=== PATIENT | female | born 1955 | race Caucasian/White ===

== ENCOUNTER 2017-11-12 11:58 | Inpatient (IN) | payer OTHER ==
[~2017-11-12] VITALS: Ht 162.6 cm; Wt 105.8 kg
[~2017-11-12 11:58] MED LIST: ASPI81CT95 PO; CARV3.12 PO; CLOP75TA PO; NITR0.4T94 SL; SIMV20TA1 PO
[2017-11-12 12:26] VITALS: BP 126/74
[2017-11-12 13:10] LABS: HEMATOCRIT 42.9 % (36-48); HEMOGLOBIN 14.1 g/dL (12.0-16.0); MEAN CORPUSCULAR HEMOGLOBIN 30 pg (27-31); MEAN CORPUSCULAR HGB CONC 33 g/dL (33-37); MEAN CORPUSCULAR VOLUME 91 fL (80-94); PLATELET COUNT (AUTO) 197 K/uL (140-450); RED CELL DISTRIBUTION WIDTH 13.4 % (11.6-13.7); WHITE BLOOD COUNT (AUTO) 14.6 K/uL (4.8-10.8)
[2017-11-12 13:24] LABS: BASOPHILS % (MANUAL) 0 % (0-2); EOSINOPHILS % (MANUAL) 1 % (0-4); LYMPHOCYTES % (MANUAL) 12 % (20-46); MONOCYTES % (MANUAL) 3 % (5-12)
[2017-11-12 13:30] LABS: PROTHROMBIN TIME 10.9 secs (10.8-13.4)
[2017-11-12 13:33] LABS: ANION GAP 17.1 (8-16); CARBON DIOXIDE 21.3 mmol/L (21-32); CREATININE 1.2 mg/dL (0.6-1.3); POTASSIUM 3.4 mmol/L (3.5-5.1)
[2017-11-12 13:39] LABS: ALBUMIN 3.8 g/dL (3.4-5.0); TOTAL BILIRUBIN 0.6 mg/dL (0.0-1.0)
[2017-11-12 13:53] LABS: D-DIMER > 5000 ng/ml (0-400)
--- NOTE | 2017-11-12 15:51 | NUR ---
PATIENT PRESENTS TO ED WITH C/O LLE EDEMA X 3 DAYS--DENIES RECENT INJURY-- DISCOLORATION WITH +1 POPLITEAL / +1 PEDAL PULSE <3 SEC CAP REFILL PARESTHESIA TO LLE;HX OF ARTHRITIS, TENDONITIS, CAD;DENIES N/V/D; SKIN IS PINK/WARM/DRY; AAOX4; LUNGS CLEAR BL; HR EVEN AND REGULAR; PT DENIES ANY FEVER, CP, SOB, OR COUGH AT THIS TIME; PATIENT STATES PAIN OF 10/10 AT THIS TIME; PATIENT POSITIONED FOR COMFORT; HOB ELEVATED; BEDRAILS UP X2; BED DOWN. ER MD MADE AWARE OF PT STATUS.
--- NOTE | 2017-11-12 17:04 | NUR ---
DR CORTES AT BEDSIDE.
[2017-11-12] MEDS ORDERED: ONDANSETRON 4 MG/2 ML VIAL IVP ONE (17:25)
[2017-11-12] MEDS ORDERED: MORPHINE SULFATE 4 MG/ML SYR IVP ONE (17:25)
--- NOTE | 2017-11-12 17:37 | NUR ---
PT STATES SHE STOP TAKING ALL HER MEDICATION A YEAR AGO.
[2017-11-12 17:44] LABS: APPEARANCE,URINE HAZY (CLEAR); BILIRUBIN,URINE 1+ (NEGATIVE); BLOOD, URINE 1+ (NEGATIVE); COLOR,URINE YELLOW (YELLOW); LEUKOCYTE ESTERASE ,URINE NEGATIVE (NEGATIVE); NITRITE, URINE POSITIVE (NEGATIVE); PH,URINE 5.5 (5.0-9.0); UGLUCOSE NEGATIVE (NEGATIVE)
[2017-11-12 17:50] LABS: RBC,URINE 0-5 (RARE) /HPF (0-5); WBC,URINE 6-15 (FEW) /HPF (0-5)
[2017-11-12] MEDS ORDERED: ENOXAPARIN 100 MG/ML SYR SUBQ ONE (17:50)
[2017-11-12] MEDS ORDERED: cefTRIAXone 1,000 MG VIAL ONE (18:23)
[2017-11-12] MEDS ORDERED: HYDROcodone/APAP 5/325 MG 1 TAB TAB PO PRN ×2 (18:25)
[2017-11-12] MEDS ORDERED: ALBUTEROL 0.083% 2.5 MG/3 ML NEBU IH PRN (18:25)
[2017-11-12] MEDS ORDERED: LORazepam 2 MG/ML VIAL IVP PRN (18:25)
[2017-11-12] MEDS ORDERED: ONDANSETRON 4 MG/2 ML VIAL IVP PRN (18:25)
[2017-11-12 19:15] VITALS: BP 127/56
--- NOTE | 2017-11-12 19:15 | NUR ---
ADMITTED A 62 FEMALE FROM ER. CAME BY GURNEY DUE TO SWELLING AND PAIN ON THE LT LOWER EXTREMITIES. THE LT LEG WITH SLIGHT REDNESS AND WITH 1+ T 2+ PITTING EDEMA. ON TELE MONITOR-SR. AWAKE,ALERT AND ORIENTED X4. WITH NO ACUTE DISTRESS NOTED. HAS OCCASIONAL PRODUCTIVE COUGH. ABLE TO AMBULATE FRO GURNEY TO BED WITH SOME DIFFICULTY, LIKE LIMPING ON THE LEFT FOOT. PT IS OBESE. SKIN INTACT . JUST A HEALED SMALL SCAB ON LT INNER FOOT. PLAN OF CARE DISCUSSED AND VERBALIZED UNDERSTANDING. BE DON LOW POSITION, FREQUENT ROUNDS NEEDED. CALL LIGHT AND BEDSIDE COMMODE WITHIN EASY REACH, ORIENTED TO HOSPITAL ROUTINES. WILL CONTINUE TO MONITOR.
--- NOTE | 2017-11-12 19:18 | NUR ---
Patient will be admitted to care of DR NICHOLS. Admited to TELE. Will go to room 120 B. Belongings list completed. Report to CASANDRA BUCHANAN.
[2017-11-12] MEDS ORDERED: ENOXAPARIN 80 MG/0.8 ML SYR SUBQ ONE (21:00)
--- NOTE | 2017-11-12 21:00 | NUR ---
PHARMACIST ABY CALLED REGARDING THE CONCERN FOR LOVENOX ORDER AND THE RECOMMENDATION FOR 100MG DOSE Q12 HRS. WILL PAGE DR. NICHOLS.
--- NOTE | 2017-11-12 21:12 | NUR ---
PAGED DR. NICHOLS,DR BUTLER E MAIL SYSTEM ADMINISTRATOR FOR ORDER OF LOVENOX. WILL WAIT FOR CALL BACK.
--- NOTE | 2017-11-12 21:35 | NUR ---
DR. BUTLER CALLED BACK AND MADE AWARE ABOUT THE LOVENOX THAT WAS ALREADY STARTED IN ER. AND HE SAID OK TO HAVE THE RECOMMENDATION OF PHARMACIST TO CHANGE IT TO 100 MG Q12H TO START RICK.
--- NOTE | 2017-11-12 23:10 | NUR ---
MADE ROUNDS. PT ASLEEP. NO S/S OF ANY DISTRESS NOTED. WILL CONTINUE TO MONITOR.
[2017-11-13 00:22] VITALS: BP 111/66
--- NOTE | 2017-11-13 00:30 | NUR ---
PT C/O SEVERE PAIN ON THE LT LOWER EXTREMITY. REFUSED NORCO. PAGED DR. BUTLER. CALLED BACK AND MADE AWARE OF THE PAIN. WITH ORDERS.
[2017-11-13] MEDS ORDERED: POTASSIUM CHLORIDE 10 MEQ TABER PO SCH (00:35)
[2017-11-13] MEDS: CODEINE PO PRN ×2 (00:55→13:10)
[2017-11-13] MEDS: ACETAMINOPHEN PO PRN ×2 (00:55→13:10)
--- NOTE | 2017-11-13 02:30 | NUR ---
MADE ROUNDS. PT IS ASLEEP. NO S/S OF ANY DISCOMFORT NOR PAIN NOTED.
[2017-11-13 04:02] VITALS: BP 112/71
--- NOTE | 2017-11-13 04:02 | NUR ---
PT VITAL SIGNS TAKEN, STABLE. NO C/O ANY PAIN ON THE LEG NOTED.
[2017-11-13 06:29] LABS: BASOPHILS # (AUTO) 0.3 K/uL (0.00-0.22); BASOPHILS % (AUTO) 2.1 % (0.0-2.0); EOSINOPHILS # (AUTO) 0.3 K/uL (0-0.4); EOSINOPHILS % (AUTO) 2.2 % (0.0-4.0); LYMPHOCYTES # (AUTO) 3.2 K/uL (2.5-16.5); LYMPHOCYTES % (AUTO) 20.3 % (20.5-51.1); MEAN CORPUSCULAR HEMOGLOBIN 31 pg (27-31); MEAN CORPUSCULAR HGB CONC 33 g/dL (33-37); MEAN CORPUSCULAR VOLUME 92 fL (80-94); MONOCYTES # (AUTO) 1.3 K/uL (0.8-1.0); MONOCYTES % (AUTO) 8.1 % (1.7-9.3); NEUTROPHILS # (AUTO) 10.5 K/uL (1.8-7.7); NEUTROPHILS % (AUTO) 67.3 % (42.2-75.2); PLATELET COUNT (AUTO) 169 K/uL (140-450); RED BLOOD CELL COUNT(AUTO) 4.26 MIL/uL (4.20-5.40); WHITE BLOOD COUNT (AUTO) 15.6 K/uL (4.8-10.8)
[2017-11-13 07:04] LABS: ALBUMIN 3.3 g/dL (3.4-5.0); ANION GAP 14.6 (8-16); CARBON DIOXIDE 23.5 mmol/L (21-32); CREATININE 0.9 mg/dL (0.6-1.3); POTASSIUM 4.1 mmol/L (3.5-5.1); TOTAL BILIRUBIN 0.5 mg/dL (0.0-1.0)
--- NOTE | 2017-11-13 07:10 | NUR ---
ENDORSED PT IN STABLE CONDITION TO AM NURSE.
--- NOTE | 2017-11-13 07:11 | NUR ---
RECEIVED REPORT FROM OWNER CONSULTING ENGINEER RN. RESPIRATORY EFFORT EVEN AND UNLABORED, NO SIGNS AND SYMPTOMS OF ACUTE DISTRESS NOTED AT THIS TIME. PATIENT HAS IV TO LEFT AC 22G, ON SALINE LOCK AT THIS TIME. SITE IS CLEAN, DRY, PATENT AND INTACT. DISCUSSED PLAN OF CARE WITH PATIENT AND SHE VERBALIZED UNDERSTANDING. BED IN LOWEST POSITION, SIDE RAILS UP X2, CALL LIGHT PLACED WITHIN REACH. WILL CONTINUE TO MONITOR.
[2017-11-13 08:00] VITALS: BP 120/48
--- NOTE | 2017-11-13 08:57 | NUR ---
PATIENT HAS BEEN SCREENED AND CATEGORIZED HIGH NUTRITION RISK. PATIENT WILL BE SEEN IN 1-2 DAYS. 11/12/17-11/13/[address]
[2017-11-13] MEDS: ENOXAPARIN 100 MG/ML SYR SUBQ SCH ×2 (09:32→20:41)
[2017-11-13] MEDS: NACL 0.9% 1,000 ML IV SCH ×2 (09:33→21:32)
[2017-11-13 12:00] VITALS: BP 112/59
--- NOTE | 2017-11-13 15:36 | NUR ---
CM NOTE INITIAL REVIEW FAXED TO [facility] (FAX# [phone], ATTN: CHRISTOPHER #[phone]) AND [facility] (FAX# [phone])
[2017-11-13 16:00] VITALS: BP 118/53
--- NOTE | 2017-11-13 16:39 | NUR ---
11/13/2017 RD INITIAL ASSESSMENT COMPLETED PLEASE REFER TO NUTRITION ASSESSMENT UNDER CARE ACTIVITY FOR ESTIMATED NUTRITIONAL NEEDS. 1. CONTINUE TO PROVIDE GENERALLY HEALTHY REGULAR DIET. 2. RD TO FOLLOW-UP IN 2-3 DAYS PATIENT IS HIGH RISK. ERIN CARMICHAEL RD
--- NOTE | 2017-11-13 19:20 | NUR ---
ENDORSED PATIENT TO LAUNDRY SORTER RN FOR CONTINUITY OF CARE. PATIENT IN STABLE CONDITION.
--- NOTE | 2017-11-13 19:32 | NUR ---
RECEIVED REPORT FROM DAY SHIFT NURSE, PATIENT RESTING IN BED, NO S/S OF DISTRESS NOTED, RESPIRATION EVEN AND UNLABORED, IV PATENT AND INTACT, INFUSING NS AT 75ML/HR, NOTED LEFT LOWER LEG SWOLLEN, PEDAL PULSE FELT ON THE LEFT FOOT, TOES MOVE FREELY WITHOUT DIFFICULTY, LEFT LEG ELEVATED ON THE PILLOW, PLAN OF CARE DISCUSSED, VERBALIZED UNDERSTANDING. CALL LIGHT WITHIN REACH, SAFETY MEASURE ENSURED, WILL CONTINUE TO MONITOR.
[2017-11-13 19:58] VITALS: BP 118/54
[2017-11-14] VITALS: BP 126/62
[2017-11-14] MEDS: ACETAMINOPHEN/CODEINE 300/30MG 1 TAB PO PRN ×2 (00:01→17:33)
--- NOTE | 2017-11-14 00:42 | NUR ---
STATED LEFT LOWER LEG PAIN, UPON PAIN ASSESS, PAIN 4/10, BP 126/62, HR 82, PAIN MEDICATION GIVEN ORDERED, CALL LIGHT WITHIN REACH, SAFETY MEASURE ENSURED, WILL CONTINUE TO MONITOR
--- NOTE | 2017-11-14 02:42 | NUR ---
PATIENT IS SLEEPING, NO S/S OF DISTRESS NOTED, RESPIRATION EVEN AND UNLABORED, CALL LIGHT WITHIN REACH, SAFETY MEASURE ENSURED, WILL CONTINUE TO MONITOR.
[2017-11-14 04:00] VITALS: BP 127/69
--- NOTE | 2017-11-14 04:52 | NUR ---
NO CHANGE IN CONDITION, PATIENT IS SLEEPING, RESPIRATION EVEN AND UNLABORED, CALL LIGHT WITHIN REACH, SAFETY MEASURE ENSURED, WILL CONTINUE TO MONITOR.
--- NOTE | 2017-11-14 06:57 | NUR ---
PATIENT IS SLEEPING, RESPIRATION EVEN AND UNLABORED, CALL LIGHT WITHIN REACH, SAFETY MEASURE ENSURED, WILL CONTINUE TO MONITOR.
--- NOTE | 2017-11-14 07:21 | NUR ---
RECEIVED PT IN BED. AWAKE. ALERT ORIENTEDX4. NO SOB NOTED. DENIES ANY PAIN OF DISCOMFORT AT THIS TIME. SAFETY PRECAUTION IN PLACE. CALL LIGHT WITHIN REACH.
--- NOTE | 2017-11-14 07:35 | NUR ---
ENDORSED PLAN OF CARE TO DAY SHIFT NURSE. PATIENT IS IN STABLE CONDITION.
[2017-11-14 08:00] VITALS: BP 120/61
[2017-11-14 08:32] LABS: BASOPHILS # (AUTO) 0.2 K/uL (0.00-0.22); BASOPHILS % (AUTO) 1.8 % (0.0-2.0); EOSINOPHILS # (AUTO) 0.4 K/uL (0-0.4); EOSINOPHILS % (AUTO) 2.8 % (0.0-4.0); HEMOGLOBIN 12.8 g/dL (12.0-16.0); LYMPHOCYTES # (AUTO) 2.4 K/uL (2.5-16.5); LYMPHOCYTES % (AUTO) 18.3 % (20.5-51.1); MEAN CORPUSCULAR HEMOGLOBIN 31 pg (27-31); MEAN CORPUSCULAR HGB CONC 34 g/dL (33-37); MEAN CORPUSCULAR VOLUME 91 fL (80-94); MONOCYTES # (AUTO) 1.1 K/uL (0.8-1.0); MONOCYTES % (AUTO) 7.9 % (1.7-9.3); NEUTROPHILS # (AUTO) 9.3 K/uL (1.8-7.7); NEUTROPHILS % (AUTO) 69.2 % (42.2-75.2); PLATELET COUNT (AUTO) 170 K/uL (140-450); RED BLOOD CELL COUNT(AUTO) 4.18 MIL/uL (4.20-5.40); RED CELL DISTRIBUTION WIDTH 13.1 % (11.6-13.7); WHITE BLOOD COUNT (AUTO) 13.4 K/uL (4.8-10.8)
[2017-11-14 09:22] LABS: ANION GAP 15.5 (8-16); CARBON DIOXIDE 22.2 mmol/L (21-32); CREATININE 0.7 mg/dL (0.6-1.3); POTASSIUM 3.7 mmol/L (3.5-5.1); TOTAL BILIRUBIN 0.5 mg/dL (0.0-1.0)
[2017-11-14] MEDS: ENOXAPARIN 100 MG/ML SYR SUBQ SCH ×2 (10:19→21:49)
--- NOTE | 2017-11-14 11:00 | NUR ---
ANTHONY FROM ULTRASOUND CAME TO SEE PT. PT WAS INSTRUCTED TO HOLD LUNCH FOR SCHEDULED ABDOMINAL ULTRASOUND AROUND 1500. PT VERBALIZED UNDERSTANDING.
[2017-11-14] MEDS: NACL 0.9% 1,000 ML IV SCH (14:35)
[2017-11-14 16:00] VITALS: BP 119/60
--- NOTE | 2017-11-14 18:37 | NUR ---
PT KEPT CLEAN, DRY AND COMFORTABLE, NEEDS ATTENDED. NO SOB NOTED. DENIES ANY PAIN OR DISCOMFORT AT THIS TIME. MADE AWARE THAT HER WALKER WILL GET DELIVERED TONIGHT. VERBALIZED UNDERSTANDING. WILL ENDORSE TO NEXT SHIFT PT ON STABLE CONDITION. FOR CONTINUITY OF CARE.
--- NOTE | 2017-11-14 19:30 | NUR ---
PATIENT REPORT RECEIVED FROM MORNING NURSE. PATIENT IS AWAKE, ALERT AND ORIENTED. NO SIGNS AND SYMPTOMS OF DISTRESS NOTED. NO COMPLAINTS OF PAIN AT THIS TIME. IV SITE NOTED ON LEFT WRIST, IVF INFUSING WELL. BED IN LOWEST POSITION, SIDE RAILS UP AND CALL LIGHT WITHIN REACH. WILL CONTINUE TO MONITOR.
[2017-11-14] MEDS: ACETAMINOPHEN PO PRN (21:42)
[2017-11-14] MEDS: CODEINE PO PRN (21:42)
[2017-11-15 04:00] VITALS: BP 140/63
[2017-11-15 08:00] VITALS: BP 137/65
[2017-11-15] MEDS: ENOXAPARIN 100 MG/ML SYR SUBQ SCH (09:00)
--- NOTE | 2017-11-15 12:00 | NUR ---
PATIENT STATED, " I WON'T HAVE A RIDE UNTIL EIGHT O'CLOCK TONIGHT WHEN MY DAUGHTER IS OFF OF WORK." JOSE ALBERTO CHARGE NURSE AWARE.
--- NOTE | 2017-11-15 13:29 | NUR ---
SPOKE WITH CHRISTOPHER FROM [facility]. SHE SAID THE HOME HEALTH NEEDS TO GO THROUGH [facility]. I CALLED [facility] AND SPOKE WITH CAREN AND FAXED INFORMATION TO HER. I TOLD HER THAT [facility]. SHE SAID LONG THEY HAVE A CONTRACT WITH [facility], IT SHOULD NOT BE A PROBLEM. I CALLED [facility] AND LEFT A MESSAGE WITH MARLEE OR EVGENY TO CALL ME BACK. CAREN PHONE [phone] [phone].
[2017-11-15] MEDS: NACL 0.9% 1,000 ML IV SCH (14:25)
[2017-11-15 15:58] LABS: BASOPHILS # (AUTO) 0.2 K/uL (0.00-0.22); BASOPHILS % (AUTO) 1.8 % (0.0-2.0); EOSINOPHILS # (AUTO) 0.4 K/uL (0-0.4); EOSINOPHILS % (AUTO) 3.6 % (0.0-4.0); HEMATOCRIT 35.3 % (36-48); HEMOGLOBIN 11.9 g/dL (12.0-16.0); LYMPHOCYTES # (AUTO) 2.3 K/uL (2.5-16.5); LYMPHOCYTES % (AUTO) 18.2 % (20.5-51.1); MEAN CORPUSCULAR HEMOGLOBIN 31 pg (27-31); MEAN CORPUSCULAR HGB CONC 34 g/dL (33-37); MEAN CORPUSCULAR VOLUME 91 fL (80-94); MONOCYTES # (AUTO) 1.2 K/uL (0.8-1.0); MONOCYTES % (AUTO) 9.4 % (1.7-9.3); NEUTROPHILS # (AUTO) 8.3 K/uL (1.8-7.7); PLATELET COUNT (AUTO) 177 K/uL (140-450); RED BLOOD CELL COUNT(AUTO) 3.87 MIL/uL (4.20-5.40); RED CELL DISTRIBUTION WIDTH 12.8 % (11.6-13.7); WHITE BLOOD COUNT (AUTO) 12.4 K/uL (4.8-10.8)
[2017-11-15 16:00] VITALS: BP 126/68
--- NOTE | 2017-11-15 16:23 | NUR ---
CHECKED WITH [facility] AND THEY CAN TAKE THE PATIENT SINCE [facility] SAID THEY COULD NOT TAKE THIS PATIENT THROUGH [facility]. [facility] WILL START TOMORROW. PHONE [phone]. KATHLEEN GUAJARDO AWARE.
--- NOTE | 2017-11-15 18:00 | NUR ---
PATIENT IS AWARE OF [facility] TO START TOMORROW AND HAS PHONE NUMBER [phone]. PATIENT VERBALIZED UNDERSTANDING OF CONTINUITY OF CARE AT HOME ONCE DISCHARGED. FAMILY AT BEDSIDE.
[2017-11-15] MEDS ORDERED: ACET-2869 PO (18:39)
[2017-11-15] MEDS ORDERED: ACET650S53 PO (18:39)
[2017-11-15] MEDS ORDERED: RIVA15TA1 PO (18:40)
[2017-11-15] MEDS ORDERED: ALBUTEROL 0.083% 2.5 MG/3 ML NEBU INH ONE (18:58)
[2017-11-15] MEDS ORDERED: CODEINE ONE (19:13)
[2017-11-15] MEDS ORDERED: ACETAMINOPHEN ONE (19:13)
--- NOTE | 2017-11-15 19:15 | NUR ---
GAVE PATIENT REPORT AT BEDSIDE TO NIGHT NURSE. PATIENT ENDORSED IN STABLE CONDITION.
[2017-11-15] MEDS: CODEINE PO PRN (19:16)
[2017-11-15] MEDS: ACETAMINOPHEN PO PRN (19:16)
--- NOTE | 2017-11-15 19:50 | NUR ---
PATIENT IS PICKED UP BY HER DAUGHTER. PATIENT IS DISCHARGED IN STABLE CONDITION.
== END 2017-11-15 19:50 | disposition home or self-care (01) | DRG 720 ==
LOC: MED 11:58 → MTU 18:45
PROVIDERS: ADMIT Hospitalist; ATTEND Hospitalist
DX: A41.9 Sepsis, unspecified organism (principal); I82.402 Acute embolism and thrombosis of unspecified deep veins of left lower extremity; I10 Essential (primary) hypertension; L03.116 Cellulitis of left lower limb; Z68.41 Body mass index [BMI] 40.0-44.9, adult; N39.0 Urinary tract infection, site not specified; F17.210 Nicotine dependence, cigarettes, uncomplicated; E66.9 Obesity, unspecified; Z79.01 Long term (current) use of anticoagulants; Z79.02 Long term (current) use of antithrombotics/antiplatelets
CPT/HCPCS: 36415; 71045; 76705; 76856; 80053; 81001; 82550; 83880; 84484; 85025; 85379; 85610; 87081; 87086; 93005; 93971; 96365; 96372; 96375; 99285; J0696; J1650; J2270; J2405; J7030; J7060; J7613; Q0092

== ENCOUNTER 2018-02-09 08:45 | Inpatient (IN) | payer OTHER ==
[~2018-02-09] VITALS: Ht 162.6 cm; Wt 109.8 kg
[~2018-02-09 08:45] MED LIST changes: +ACET-2869 PO; +ACET650S53 PO; -ASPI81CT95 PO; -CARV3.12 PO; -CLOP75TA PO; -NITR0.4T94 SL; +RIVA15TA1 PO; -SIMV20TA1 PO
[2018-02-09 08:48] VITALS: BP 148/70
--- NOTE | 2018-02-09 08:53 | NUR ---
PATIENT AMBULATED TO ER BED 2
--- NOTE | 2018-02-09 08:57 | NUR ---
62Y/F C/O BLOOD IN STOOL X1 THIS MORNING. HX DVT, ARTHRITIS, HEMORRHOIDS. ADMITTED 2 MOS AGO FOR DVT TO LEFT LOWER LEG AND WAS RX'D XARELTO. PATIENT STATES PAIN OF 0/10 AT THIS TIME; PATIENT POSITIONED FOR COMFORT; HOB ELEVATED; BEDRAILS UP X2; BED DOWN. ER MD MADE AWARE OF PT STATUS.
--- NOTE | 2018-02-09 08:57 | NUR ---
DR. ALBA EVALUATING PATIENT BEDSIDE
--- NOTE | 2018-02-09 09:38 | NUR ---
PT IS NOT ABLE TO GIVE URINE AT THIS TIME
[2018-02-09] MEDS ORDERED: RIVA20TA PO (09:40)
[2018-02-09 09:45] LABS: BASOPHILS % (AUTO) 0.4 % (0.0-2.0); EOSINOPHILS # (AUTO) 0.1 K/uL (0-0.4); EOSINOPHILS % (AUTO) 1.1 % (0.0-4.0); HEMOGLOBIN 13.7 g/dL (12.0-16.0); LYMPHOCYTES # (AUTO) 1.6 K/uL (2.5-16.5); LYMPHOCYTES % (AUTO) 20.3 % (20.5-51.1); MEAN CORPUSCULAR HEMOGLOBIN 31 pg (27-31); MEAN CORPUSCULAR HGB CONC 34 g/dL (33-37); MEAN CORPUSCULAR VOLUME 90.8 fL (80-94); MONOCYTES # (AUTO) 0.7 K/uL (0.8-1.0); MONOCYTES % (AUTO) 8.4 % (1.7-9.3); NEUTROPHILS # (AUTO) 5.6 K/uL (1.8-7.7); NEUTROPHILS % (AUTO) 69.8 % (42.2-75.2); PLATELET COUNT (AUTO) 219 K/uL (140-450); RED BLOOD CELL COUNT(AUTO) 4.41 MIL/uL (4.20-5.40); RED CELL DISTRIBUTION WIDTH 13.6 % (11.6-13.7)
[2018-02-09 10:00] LABS: PROTHROMBIN TIME 11.5 secs (10.8-13.4)
--- NOTE | 2018-02-09 10:05 | NUR ---
PT IS NOW ABLE TO GIVE URINE
[2018-02-09 10:07] LABS: ALBUMIN 3.2 g/dL (3.4-5.0); ANION GAP 11.5 (8-16); CARBON DIOXIDE 27.1 mmol/L (21-32); CREATININE 0.7 mg/dL (0.6-1.3); POTASSIUM 3.6 mmol/L (3.5-5.1); TOTAL BILIRUBIN 0.3 mg/dL (0.0-1.0)
[2018-02-09 10:23] LABS: APPEARANCE,URINE CLEAR (CLEAR); BILIRUBIN,URINE NEGATIVE (NEGATIVE); BLOOD, URINE 2+ (NEGATIVE); COLOR,URINE YELLOW (YELLOW); LEUKOCYTE ESTERASE ,URINE NEGATIVE (NEGATIVE); NITRITE, URINE POSITIVE (NEGATIVE); PH,URINE 5.5 (5.0-9.0); UGLUCOSE NEGATIVE (NEGATIVE)
[2018-02-09] MEDS ORDERED: ACETAMINOPHEN 325 MG TAB PO PRN (10:25)
[2018-02-09] MEDS ORDERED: MORPHINE SULFATE 4 MG/ML SYR IVP PRN (10:25)
[2018-02-09] MEDS ORDERED: ONDANSETRON 4 MG/2 ML VIAL IVP PRN (10:25)
--- NOTE | 2018-02-09 11:10 | NUR ---
Patient will be admitted to care of DR. HUMPHREY. Admited to MED SURG. Will go to room 111A. Belongings list completed. Report to AMBER GUAJARDO.
[2018-02-09 11:15] VITALS: BP 157/65
[2018-02-09 11:23] LABS: RBC,URINE 0-5 (RARE) /HPF (0-5); WBC,URINE 0-5 (RARE) /HPF (0-5)
[2018-02-09] MEDS: NACL 0.9% 1,000 ML IV SCH ×2 (11:55→23:44)
--- NOTE | 2018-02-09 11:55 | NUR ---
PATIENT ADMITTED TO THE UNIT. PATIENT AWAKE, ALERT AND ORIENTED. NO S/S OF DISTRESS. NO C/O PAIN AT THIS TIME. IV LINE NOTED TO THE LEFT FOREARM SALINE LOCKED. +2 PITTING EDEMA NOTED TO THE LEFT LEG. BED LOWERED WITH CALL LIGHT WITHIN REACH. WILL CONTINUE TO MONITOR
[2018-02-09] MEDS ORDERED: BOWEL EVACUANT DRINK 4,000 ML PDS PO SCH (15:50)
[2018-02-09 16:00] VITALS: BP 144/66
--- NOTE | 2018-02-09 17:20 | NUR ---
PATIENT AMBULATED TO THE BATHROOM TO VOID. NO S/S OF DISTRESS NOTED
[2018-02-09] MEDS: SENNA 8.6 MG TAB PO SCH (19:03)
[2018-02-09] MEDS: LACTULOSE 20 GM/30 ML UDC PO SCH ×2 (19:03→21:14)
--- NOTE | 2018-02-09 19:30 | NUR ---
PATIENT REPORT GIVEN AT BEDSIDE. PATIENT ENDORSED IN STABLE CONDITION
--- NOTE | 2018-02-09 19:34 | NUR ---
RECEIVED PT FROM KAIDEN GUAJARDO PT BELARUSIAN SPEAKER AAOX4 AMBULATORY IV ON LEFT HAND INFUSING WELL PT ON COLON PREPARATION WITH GOLYTELY FOR COLONOSCOPY TOMORROW BY DR MERCADO PT COOPERATIVE TO TAKE HER PREPARATION FOR COLONOSCOPY INITIAL ASSESSMENT DONE
[2018-02-09 20:00] VITALS: BP 133/65
[2018-02-09] MEDS ORDERED: MAGNESIUM CITRATE 300 ML BTL PO SCH (20:00)
[2018-02-09] MEDS: POTASSIUM CHLORIDE 20% 40 MEQ/15 ML UDC PO SCH (21:13)
--- NOTE | 2018-02-09 21:30 | NUR ---
PT STARTED TO GO TOTHE RESTROOM WITH LIQUID STOOL AND NOT BLOOD NOTED PT CONTINUING TAKEN GOLYTELY AND ALL PREPARTAION FOR COLONOSCOPY
[2018-02-10] VITALS: BP 135/65
--- NOTE | 2018-02-10 02:29 | NUR ---
PT USING BSC LIQUID STOOL BUT NOT CLEAR YET
[2018-02-10 04:00] VITALS: BP 127/46
--- NOTE | 2018-02-10 04:20 | NUR ---
PT GETTING CLEAR LIQUID STOOL STILL SEDIMENTS SEEN, PT DENIES ANY PAIN
--- NOTE | 2018-02-10 07:00 | NUR ---
PT IS ENDORSED TO [facility] FOR CONTINUITY OF CARE CONSENT SIGNED FOR COLONOSCOPY TODAY TICKET TO RIDE READY AND SURGICAL CHECK LIST READY TOO
--- NOTE | 2018-02-10 07:01 | NUR ---
RECEIVED REPORT FROM [employer] FACULTY MEMBER NURSE MARIELLA AT BEDSIDE FOR CONTINUITY OF CARE. PT IS AWAKE AND ORIENTED. INTRODUCED SELF AND UPDATED BOARD. IV TO L HAND 22G INTACT WITH NS @75ML/HR. NO SIGNS OF DISTRESS. PT DENIES PAIN. PT ON NPO STATUS FOR COLONOSCOPY TODAY. BED IN LOW POSITION, WHEELS LOCKED, CALL LIGHT WITHIN REACH. WILL CONTINUE TO MONITOR.
--- NOTE | 2018-02-10 07:12 | NUR ---
PATIENT HAS BEEN SCREENED AND CATEGORIZED HIGH NUTRITION RISK. PATIENT WILL BE SEEN WITHIN 1-2 DAYS OF ADMISSION. 02/10/18-02/11/18 EJ QUEVEDO MS, RDN
[2018-02-10 07:40] LABS: BASOPHILS % (AUTO) 0.4 % (0.0-2.0); EOSINOPHILS # (AUTO) 0.1 K/uL (0-0.4); EOSINOPHILS % (AUTO) 1.5 % (0.0-4.0); HEMATOCRIT 39.7 % (36-48); HEMOGLOBIN 13.2 g/dL (12.0-16.0); LYMPHOCYTES # (AUTO) 2.3 K/uL (2.5-16.5); LYMPHOCYTES % (AUTO) 26.8 % (20.5-51.1); MEAN CORPUSCULAR HEMOGLOBIN 31 pg (27-31); MEAN CORPUSCULAR HGB CONC 33 g/dL (33-37); MONOCYTES # (AUTO) 0.7 K/uL (0.8-1.0); MONOCYTES % (AUTO) 7.9 % (1.7-9.3); NEUTROPHILS # (AUTO) 5.5 K/uL (1.8-7.7); NEUTROPHILS % (AUTO) 63.4 % (42.2-75.2); PLATELET COUNT (AUTO) 212 K/uL (140-450); RED BLOOD CELL COUNT(AUTO) 4.31 MIL/uL (4.20-5.40); RED CELL DISTRIBUTION WIDTH 13.8 % (11.6-13.7); WHITE BLOOD COUNT (AUTO) 8.7 K/uL (4.8-10.8)
[2018-02-10 07:56] LABS: ALBUMIN 3.1 g/dL (3.4-5.0); ANION GAP 13.6 (8-16); CARBON DIOXIDE 26.5 mmol/L (21-32); CREATININE 0.6 mg/dL (0.6-1.3); POTASSIUM 4.1 mmol/L (3.5-5.1); TOTAL BILIRUBIN 0.3 mg/dL (0.0-1.0)
[2018-02-10 08:00] VITALS: BP 133/51
[2018-02-10] MEDS ORDERED: fentaNYL 0.05 MG/ML VIAL ONE (08:35)
[2018-02-10] MEDS ORDERED: MIDAZOLAM 2 MG/2 ML VIAL ONE (08:36)
[2018-02-10] MEDS ORDERED: diphenhydrAMINE 50 MG/ML VIAL ONE (08:36)
[2018-02-10] MEDS: SENNA 8.6 MG TAB PO SCH (09:00)
[2018-02-10] MEDS: LACTULOSE 20 GM/30 ML UDC PO SCH (09:00)
[2018-02-10] MEDS ORDERED: FAMOTIDINE 20 MG/2 ML VIAL IVP SCH (09:00)
[2018-02-10] MEDS ORDERED: MIDAZOLAM 2 MG/2 ML VIAL IVP ONE (10:15)
[2018-02-10] MEDS ORDERED: fentaNYL 0.05 MG/ML VIAL IVP ONE (10:15)
[2018-02-10] MEDS: POTASSIUM CHLORIDE 20% 40 MEQ/15 ML UDC PO SCH (10:29)
--- NOTE | 2018-02-10 10:58 | NUR ---
02/10/18 RD INITIAL ASSESSMENT COMPLETED PLEASE REFER TO NUTRITION ASSESSMENT UNDER CARE ACTIVITY FOR ESTIMATED NUTRITIONAL NEEDS. RD RECOMMENDATIONS: 1. CONTINUE ON CARDIAC DIET TOLERATED. 2. CONSULT RDN PRN. 3. RD WILL F/U 2-3 DAYS; HIGH RISK. EJ QUEVEDO MS, RDN
--- NOTE | 2018-02-10 12:35 | NUR ---
GAVE PT D/C FORMS, INSTRUCTIONS, RX AND FOLLOW UP APPOINTMENT. PT VERBALIZED UNDERSTANDING AND SIGNED FORMS. PT STATED THAT SHE DID NOT WANT TO GO HOME YET. TOLD PT THAT SHE IS ALREADY D/C AND WILL NEED RIDE TO PICK HER UP SOON. PT STATED SHE IS WAITING FOR RIDE AT 7PM. WILL CONTINUE TO MONITOR.
--- NOTE | 2018-02-10 13:30 | NUR ---
PT WAS GETTING READY AND DRESSED IN OWN CLOTHES. REMOVED IV CATHETER FROM L HAND 22G. IV CATHETER TIP INTACT. APPLIED DRESSING AND PRESSURE TO SITE. NO BLEEDING NOTED. PT STATED THAT SHE "DOES NOT LIKE HOW YOU ARE KICKING ME OUT OF HERE." INFORMED PT THAT SHE IS ALREADY D/C AND WILL NEED TO LEAVE WITH A RIDE SOON. PT WAS GETTING PERSONAL BELONGINGS READY AND SAID SHE HAS RIDE TO GO HOME.
--- NOTE | 2018-02-10 14:00 | NUR ---
PT D/C TO GO HOME. LEFT WITH ALL PERSONAL BELONGINGS AND D/C FORMS. PT LEFT IN STABLE CONDITION.
[2018-02-10] MEDS ORDERED: PSYLLIUM 12.2 GM/PKT PO SCH (21:00)
== END 2018-02-10 14:00 | disposition home or self-care (01) | DRG 244 ==
LOC: MED 08:45 → MTU 10:29
PROVIDERS: ADMIT Internal Medicine; ATTEND Internal Medicine
PROC: 0DBL8ZZ Excision of Transverse Colon, Via Natural or Artificial Opening Endoscopic (ICD-10-PCS; principal; 2018-02-10 09:00)
DX: K57.32 Diverticulitis of large intestine without perforation or abscess without bleeding (principal); Z68.41 Body mass index [BMI] 40.0-44.9, adult; I10 Essential (primary) hypertension; K64.8 Other hemorrhoids; K63.5 Polyp of colon; Z86.718 Personal history of other venous thrombosis and embolism; Z79.01 Long term (current) use of anticoagulants; Z82.49 Family history of ischemic heart disease and other diseases of the circulatory system; K62.5 Hemorrhage of anus and rectum; E66.01 Morbid (severe) obesity due to excess calories
CPT/HCPCS: 36415; 80053; 81001; 81025; 85025; 85610; 85730; 87081; 93005; 99285; J1200; J2250; J3010; J3490; J7030

== ENCOUNTER 2018-09-02 21:29 | Inpatient (IN) | payer OTHER ==
[~2018-09-02] VITALS: Ht 157.5 cm; Wt 111.1 kg
[~2018-09-02 21:29] MED LIST changes: -ACET-2869 PO; -ACET650S53 PO; -RIVA15TA1 PO; +RIVA20TA PO
--- NOTE | 2018-09-02 21:33 | NUR ---
PT BIBA TO ER BED 08
[2018-09-02 21:42] VITALS: BP 149/72
--- NOTE | 2018-09-02 21:48 | NUR ---
PT PRESENTS TO ED BIBA WITH C/O ABD PAIN TO LRQ X 2 DAYS. PT DENIES N/V. PT REPORTS BM EARLIER TODAY. PT REPORTS HX OF GI BLEED. ABD IS NON-TENDER, SOFT, FLAT. BOWEL SOUNDS HYPERACTIVE X 4 QUADRANTS. PT PLACED IN BED, GOWN, PENDING MD ZUNIGA.
[2018-09-02] MEDS ORDERED: ONDANSETRON 4 MG/2 ML VIAL IVP ONE (22:20)
[2018-09-02] MEDS ORDERED: NACL 0.9% 1,000 ML IV SCH (22:20)
[2018-09-02] MEDS ORDERED: fentaNYL 0.05 MG/ML VIAL IVP ONE (22:20)
[2018-09-02 23:00] LABS: BASOPHILS % (AUTO) 0.3 % (0.0-2.0); EOSINOPHILS # (AUTO) 0.1 K/uL (0-0.4); HEMATOCRIT 37.8 % (36-48); HEMOGLOBIN 12.5 g/dL (12.0-16.0); LYMPHOCYTES # (AUTO) 1.9 K/uL (2.5-16.5); LYMPHOCYTES % (AUTO) 15.7 % (20.5-51.1); MEAN CORPUSCULAR HEMOGLOBIN 30 pg (27-31); MEAN CORPUSCULAR HGB CONC 33 g/dL (33-37); MEAN CORPUSCULAR VOLUME 90.6 fL (80-94); MONOCYTES % (AUTO) 7.8 % (1.7-9.3); NEUTROPHILS # (AUTO) 9.3 K/uL (1.8-7.7); NEUTROPHILS % (AUTO) 75.2 % (42.2-75.2); PLATELET COUNT (AUTO) 222 K/uL (140-450); RED BLOOD CELL COUNT(AUTO) 4.17 MIL/uL (4.20-5.40); RED CELL DISTRIBUTION WIDTH 13.8 % (11.6-13.7); WHITE BLOOD COUNT (AUTO) 12.3 K/uL (4.8-10.8)
--- NOTE | 2018-09-02 23:00 | NUR ---
Patient appears to be resting comfortably in bed. Vital Signs within normal limits. Respirations even and unlabored.
[2018-09-02 23:10] LABS: ANION GAP 13.6 (8-16); CARBON DIOXIDE 26.1 mmol/L (21-32); CREATININE 0.9 mg/dL (0.6-1.3); POTASSIUM 3.7 mmol/L (3.5-5.1)
[2018-09-02 23:14] LABS: PROTHROMBIN TIME 12.1 secs (10.8-13.4)
[2018-09-02 23:17] LABS: ALBUMIN 3.1 g/dL (3.4-5.0); TOTAL BILIRUBIN 0.1 mg/dL (0.0-1.0)
[2018-09-02 23:45] LABS: APPEARANCE,URINE CLEAR (CLEAR); COLOR,URINE YELLOW (YELLOW); UGLUCOSE NEGATIVE (NEGATIVE)
[2018-09-02 23:46] LABS: BILIRUBIN,URINE NEGATIVE (NEGATIVE); LEUKOCYTE ESTERASE ,URINE NEGATIVE (NEGATIVE); NITRITE, URINE NEGATIVE (NEGATIVE)
[2018-09-02 23:47] LABS: BLOOD, URINE 2+ (NEGATIVE)
[2018-09-02 23:48] LABS: RBC,URINE 0-5 (RARE) /HPF (0-5); WBC,URINE 0-5 (RARE) /HPF (0-5)
[2018-09-02 23:49] LABS: URINE AMORPHOUS URATE 1+ /HPF (None Seen)
[2018-09-03] MEDS ORDERED: metroNIDAZOLE 500 MG/NS PREMIX 100 ML IV ONE (01:10)
[2018-09-03] MEDS ORDERED: LEVOFLOXACIN 750 MG TAB PO ONE (01:10)
--- NOTE | 2018-09-03 01:53 | NUR ---
PT RESTING IN BED, NO NEW COMPLAINTS OR CONCERNS. VSS, WILL CONTINUE TO MONITOR.
--- NOTE | 2018-09-03 03:44 | NUR ---
Patient will be admitted to care of DR NICHOLS. Admited to MED SURG. Will go to room ICU-3. Belongings list completed. Report to CASANDRA FRANKLIN.
--- NOTE | 2018-09-03 03:50 | NUR ---
PATIENT TRANSFERRED TO ICU-3 FROM ER VIA WHEELCHAIR WITH ONE RN ASSISTANCE. PATIENT AAOX4, VERBALLY RESPONSIVE. BILATERAL LUNGS SOUND CLEAR, ON ROOM AIR, O2 SAT 100% NOTED. NO ACUTE RESPIRATORY DISTRESS NOTED. ABLE TO WALK WITH ASSISTANCE. SR ON THE MONITOR. DENIES ABDOMINAL PAIN AT THIS TIME. PERIPHERAL IV TO LEFT HAND 22G NOTED. SKIN IS INTACT. WARM TO TOUCH. WILL CONTINUE TO MONITOR.
[2018-09-03 04:00] VITALS: BP 137/67
--- NOTE | 2018-09-03 05:20 | NUR ---
PATIENT IN ASLEEP AT THIS TIME, AROUSABLE TO VOICE. NO ACUTE DISTRESS NOTED. DENIES PAIN. VSS. WILL CONTINUE TO MONITOR.
--- NOTE | 2018-09-03 06:30 | NUR ---
TRANSFERRED PATIENT TO [facility] 120 A.
--- NOTE | 2018-09-03 06:50 | NUR ---
RECEIVED PT FROM ICU IN STABLE CONDITION.AWAKE,ALERT AND ORIENTED.RESP UNLABORED IN RA.VS STABLE.T=98.3,RR=18,SC=66, O2 SAT=99%,GA=132/59.SL.PATENT IN LT HAND W/O REDNESS OR EDEMA.LUNG CLEAR.PLACED ON BED.ORIENTED TO ROOM.CALL SYSTEM EXPLAINED AND IN REACH.SKIN IS INTACT.
--- NOTE | 2018-09-03 07:35 | NUR ---
RECEIVED REPORT ABOUT THE PT FROM NIGHT CHARGE NURSEDELFIN, PT IS AWAKE AND IS AMBULATING TO THE BED FROM THE BATHROOM, PT IS ALERT, ORIENTEDX4, GHANAIAN SPEAKING AND WAS ADMITTED TO MS. PT DENIES PAIN AND SOB AT THIS TIME. ASSISTED TO BED AND SIDE RAILS ARE UP AND CALL LIGHT WITHIN REACH. NO SIGN OF DISTRESS NOTED AND WILL CONTINUE TO MONITOR PT.
[2018-09-03 08:00] VITALS: BP 146/84
--- NOTE | 2018-09-03 09:23 | NUR ---
PATIENT HAS BEEN SCREENED AND CATEGORIZED HIGH NUTRITION RISK. PATIENT WILL BE SEEN WITHIN 1-2 DAYS OF ADMISSION. 09/03/18 09/04/[address]
[2018-09-03] MEDS: PANTOPRAZOLE 40 MG INJ VIAL IVP SCH ×2 (09:30→11:08)
[2018-09-03] MEDS ORDERED: LEVOFLOXACIN 500 MG/D5W PREMIX 100 ML IV SCH (09:30)
[2018-09-03 09:59] LABS: BASOPHILS % (AUTO) 0.1 % (0.0-2.0); EOSINOPHILS # (AUTO) 0.1 K/uL (0-0.4); EOSINOPHILS % (AUTO) 0.7 % (0.0-4.0); HEMATOCRIT 33.6 % (36-48); HEMOGLOBIN 11.3 g/dL (12.0-16.0); LYMPHOCYTES # (AUTO) 1.8 K/uL (2.5-16.5); LYMPHOCYTES % (AUTO) 14.2 % (20.5-51.1); MEAN CORPUSCULAR HEMOGLOBIN 30 pg (27-31); MEAN CORPUSCULAR HGB CONC 34 g/dL (33-37); MEAN CORPUSCULAR VOLUME 89.7 fL (80-94); MONOCYTES # (AUTO) 0.7 K/uL (0.8-1.0); MONOCYTES % (AUTO) 5.4 % (1.7-9.3); NEUTROPHILS # (AUTO) 9.9 K/uL (1.8-7.7); NEUTROPHILS % (AUTO) 79.6 % (42.2-75.2); PLATELET COUNT (AUTO) 223 K/uL (140-450); RED BLOOD CELL COUNT(AUTO) 3.75 MIL/uL (4.20-5.40); WHITE BLOOD COUNT (AUTO) 12.4 K/uL (4.8-10.8)
[2018-09-03] MEDS ORDERED: PANTOPRAZOLE 40 MG INJ VIAL IVP SCH (10:30)
--- NOTE | 2018-09-03 10:30 | NUR ---
PT IS AWAKE AND LYING ON THE BED WATCHING TV, DENIES PAIN, ASSISTED TO THE BATHROOM AND PT VOIDED, 3 SMALL CLOTS OF BLOOD WERE NOTED ON THE URINE. WILL CONTINUE TO MONITOR PT.
--- NOTE | 2018-09-03 11:55 | NUR ---
ACKNOWLEDGED AN ORDER FROM DR. NICHOLS FOR PT TO BE ON NPO EXCEPT MEDS, ACKNOWLEDGED AND WILL CARRY OUT ORDER.
[2018-09-03] MEDS ORDERED: ACETAMINOPHEN 325 MG TAB PO PRN (12:00)
[2018-09-03] MEDS ORDERED: MORPHINE SULFATE 4 MG/ML SYR IVP PRN (12:00)
[2018-09-03] MEDS ORDERED: ONDANSETRON 4 MG/2 ML VIAL IVP PRN (12:00)
--- NOTE | 2018-09-03 12:00 | NUR ---
DR. NICHOLS CAME TO THE PT'S ROOM AND SPOKE TO PT REGARDING THE POC AND ON NPO EXCEPT MEDS NOW, DR. NICHOLS TOLD PT THAT A GI DOCTOR, WILL SEE THE PT, AND PT VERBALIZED UNDERSTANDING
[2018-09-03] MEDS: NACL 0.9% 1,000 ML IV SCH (12:24)
[2018-09-03] MEDS: metroNIDAZOLE 500 MG/NS PREMIX 100 ML IV SCH ×2 (12:33→20:08)
--- NOTE | 2018-09-03 12:35 | NUR ---
PT IS AWAKE AND WATCHING TV, LYING ON THE BED, FLAGYL WAS STARTED TO THE PT VIA IVPB, PT TOLERATING IT NOW AND NO NEGATIVE REACTION NOTED. WILL MONITOR PT.
--- NOTE | 2018-09-03 13:42 | NUR ---
U/S VENOUS OF BLE IS BEING DONE TO PT NOW, PT IS AWAKE AND ALERT AND TALKING TO CLINICAL RESEARCH PHYSICIAN.
--- NOTE | 2018-09-03 15:13 | NUR ---
SEQUENTIAL COMPRESSION DEVICE WAS PLACED TO THE PT NOW.
[2018-09-03 16:00] VITALS: BP 126/54
--- NOTE | 2018-09-03 16:41 | NUR ---
Initial Review faxed to [facility].
--- NOTE | 2018-09-03 16:56 | NUR ---
DR. RAQUEL DU CAME TO THE PT'S ROOM AND SPOKE TO PT AND PT STARTED STATING HER PROBLEMS WITH MD. WILL FOLLOW THROUGH WITH .
--- NOTE | 2018-09-03 19:24 | NUR ---
ENDORSED PT TO PASTA PRESS OPERATOR NURSE, TONY, PT IS AWAKE AND TALKING TO HER CP AND IS STABLE AT THIS TIME.
--- NOTE | 2018-09-03 19:25 | NUR ---
RECEIVED PATIENT AWAKE SITTING ON BED. PATIENT AA0X4, SUDANESE SPEAKING. EXPLAINED PLAN OF CARE AND VERBALIZED UNDERSTANDING THROUGH SUDANESE SPEAKING STAFF. FALL PRECAUTION APPLIED. CALL LIGHT WITHIN REACH. WILL CONTINUE TO MONITOR.
[2018-09-03] MEDS: LACTULOSE 20 GM/30 ML UDC PO SCH (20:08)
[2018-09-03] MEDS ORDERED: PHENYLEPHRINE 0.25% 1 EA SUPP RC SCH (21:00)
--- NOTE | 2018-09-03 21:00 | NUR ---
V/ S TAKEN AND RECORDED. SCHEDULE MEDICATION GIVEN TOLERATED WELL. ASSISTED PATIENT TO BATHROOM. ALL NEEDS ATTENDED.
[2018-09-04] VITALS: BP 137/52
--- NOTE | 2018-09-04 00:50 | NUR ---
ENDORSED PATIENT TO DONATO RN FOR CONTINUITY OF CARE. PATIENT IN STABLE CONDITION.
--- NOTE | 2018-09-04 00:53 | NUR ---
RECEIVED FROM PREVIOUS RN SLEEPING. NO RESTLESSNESS NOTED. IVF SITE TO LEFT HAND INTACT AND NO INFILTRATION.
[2018-09-04] MEDS: metroNIDAZOLE 500 MG/NS PREMIX 100 ML IV SCH ×2 (05:20→13:51)
[2018-09-04] MEDS: NACL 0.9% 1,000 ML IV SCH ×2 (05:20→14:35)
--- NOTE | 2018-09-04 06:39 | NUR ---
NEW LINE INSERTED FOR IVF RT OLD IVF INFILTRATED. TOLERATED WELL. TIP INTACT. NEW LINE INSERTED WITH GOOD BLOOD RETURN. ABLE TO VERBALIZE NEEDS WELL. NO SOB. DENIES ANY PAIN.
--- NOTE | 2018-09-04 07:05 | NUR ---
RECEIVED BEDSIDE REPORT FROM PM SHIFT NURSE. PT AWAKE, VERBALLY RESPONSIVE, NO C/O PAIN. CALL LIGHT WITHIN REACH.
--- NOTE | 2018-09-04 07:10 | NUR ---
RECEIVED BEDSIDE REPORT FROM PM SHIFT NURSE. PT ASLEEP, RESPIRATIONS EVEN & UNLABORED. 1:1 SITTER AT BEDSIDE. Addendum: 09/04/18 at 0918 by Ana Wilkes RN WRONG PT CHARTED. PLS OMIT PREVIOUS NOTE.
[2018-09-04 07:26] LABS: BASOPHILS % (AUTO) 0.4 % (0.0-2.0); EOSINOPHILS # (AUTO) 0.2 K/uL (0-0.4); EOSINOPHILS % (AUTO) 1.7 % (0.0-4.0); HEMOGLOBIN 11.3 g/dL (12.0-16.0); LYMPHOCYTES # (AUTO) 2.3 K/uL (2.5-16.5); LYMPHOCYTES % (AUTO) 23.6 % (20.5-51.1); MEAN CORPUSCULAR HEMOGLOBIN 30 pg (27-31); MEAN CORPUSCULAR HGB CONC 33 g/dL (33-37); MEAN CORPUSCULAR VOLUME 91.2 fL (80-94); MONOCYTES # (AUTO) 0.7 K/uL (0.8-1.0); NEUTROPHILS # (AUTO) 6.6 K/uL (1.8-7.7); NEUTROPHILS % (AUTO) 67.3 % (42.2-75.2); PLATELET COUNT (AUTO) 208 K/uL (140-450); RED BLOOD CELL COUNT(AUTO) 3.73 MIL/uL (4.20-5.40); WHITE BLOOD COUNT (AUTO) 9.8 K/uL (4.8-10.8)
[2018-09-04 07:50] LABS: ANION GAP 12.2 (8-16); CARBON DIOXIDE 26.2 mmol/L (21-32); CREATININE 0.7 mg/dL (0.6-1.3); POTASSIUM 3.4 mmol/L (3.5-5.1); TOTAL BILIRUBIN 0.2 mg/dL (0.0-1.0)
[2018-09-04 08:00] VITALS: BP 130/53
[2018-09-04] MEDS: LACTULOSE 20 GM/30 ML UDC PO SCH (08:56)
[2018-09-04] MEDS: PANTOPRAZOLE 40 MG INJ VIAL IVP SCH (08:57)
[2018-09-04] MEDS ORDERED: LEVOFLOXACIN 500 MG/D5W PREMIX 100 ML IV SCH (09:00)
[2018-09-04] MEDS ORDERED: PSYLLIUM 12.2 GM/PKT PO SCH (09:00)
--- NOTE | 2018-09-04 09:00 | NUR ---
PT SITTING UP IN BED, DENIES ANY DISCOMFORT. CALL LIGHT WITHIN REACH.
--- NOTE | 2018-09-04 09:15 | NUR ---
PT C/O 06/15 HEADACHE. NO PAIN MED PROFILED AT THIS TIME. DR CARRIE COHEN & AWAITING CALL BACK. Addendum: 09/04/18 at 0917 by Ana Wilkes RN WRONG PT CHARTED. PLS OMIT PREVIOUS NOTE.
--- NOTE | 2018-09-04 11:15 | NUR ---
PT LYING IN BED, WATCHING TV. NO C/O PAIN/DISCOMFORT. RESPIRATIONS EVEN & UNLABORED. CALL LIGHT WITHIN REACH. RIGHT HAND IV INTACT WITH ONGOING IVF INFUSION.
--- NOTE | 2018-09-04 11:30 | NUR ---
DR DU PAGED ON THE PHONE RE: ORDER FROM DR NICHOLS TO F/U WITH HIM PRIOR TO DISCHARGE. AWAITING CALL BACK.
--- NOTE | 2018-09-04 13:50 | NUR ---
PT IN TOILET WITH LOOSE STOOL, NO BLEEDING OBSERVED. ASSISTED WITH SKIN/ECTOR CARE. NO C/O ABD DISCOMFORT AT THIS TIME. PT ASSISTED BACK TO BED FROM TOILET, PROVIDED PT WITH NEW [facility]ITAL GOWN & SOCKS. PT ABLE TO DON/DOFF CLOTHING INDEPENDENTLY. CALL LIGHT WITHIN REACH. RT HAND IV INTACT & ASYMPTOMATIC WITH ONGOING IVF INFUSION.
--- NOTE | 2018-09-04 14:38 | NUR ---
09/04/18 RD INITIAL ASSESSMENT COMPLETED PLEASE REFER TO NUTRITION ASSESSMENT UNDER CARE ACTIVITY FOR ESTIMATED NUTRITIONAL NEEDS. 1. RECOMMEND REGULAR LOW FIBER DIET TOLERATED 2. RD TO FOLLOW-UP 3-5 DAYS, MODERATE RISK BISI GUERRA RD
[2018-09-04] MEDS ORDERED: POTASSIUM CHLORIDE 10 MEQ TABER PO SCH (15:00)
--- NOTE | 2018-09-04 15:37 | NUR ---
PT LYING IN BED, TALKING ON HER CELPHONE. NO C/O PAIN. RT HAND IV INTACT & ASYMPTOMATIC WITH ONGOING IVF INFUSION. OFFERED ASSISTANCE WITH ADL TASKS, PT REFUSED & STATES SHE IS OK FOR NOW. CALL LIGHT WITHIN REACH.
[2018-09-04 16:00] VITALS: BP 140/53
--- NOTE | 2018-09-04 16:00 | NUR ---
DR DU PAGED AGAIN RE: DISCHARGE ORDER. AWAITING CALL BACK.
--- NOTE | 2018-09-04 16:51 | NUR ---
DR NICHOLS PAGEKelle D/T DR DU NOT RESPONDING. AWAITING PHYSICIAN TO CALL BACK. PT ASSISTED TO RESTROOM, ABLE TO AMB WITH STEADY GAIT. VOIDED MOD AMOUNT. ASSISTED BACK TO BED. RIGHT HAND IV INTACT & ASYMPTOMATIC WITH ONGOING IVF INFUSION. CALL LIGHT WITHIN REACH.
--- NOTE | 2018-09-04 16:54 | NUR ---
SPOKE WITH DR. NICHOLS & NOTIFIED OF DR DU NOT RESPONDING. PER DR NICHOLS, CONTINUE WITH DISCHARGE. PT NOTIFIED & VERBALIZED UNDERSTANDING.
--- NOTE | 2018-09-04 18:36 | NUR ---
DISCHARGE INSTRUCTIONS PROVIDED TO PT. SON AT BEDSIDE TO TRANSPORT PT VIA PRIVATE VEHICLE. RT HAND IV SITE DISCONTINUED. PT DENIES ANY PAIN/DISCOMFORT. STATES SHE IS READY TO GO HOME.
--- NOTE | 2018-09-04 18:50 | NUR ---
ASSISTED PT TO FRONT LOBBY VIA WHEELCHAIR. PT ABLE TO AMB TO SON'S PRIVATE VAN WITH STEADY GAIT. ALL BELONGINGS WITH PT. PT STABLE, DENIES ANY PAIN OR DISCOMFORT.
== END 2018-09-04 18:50 | disposition home or self-care (01) | DRG 244 ==
LOC: MED 21:29 → MIC 09-03 03:22 → MTU 09-03 06:43
PROVIDERS: ADMIT Hospitalist; ATTEND Hospitalist
DX: K57.93 Diverticulitis of intestine, part unspecified, without perforation or abscess with bleeding (principal); E44.1 Mild protein-calorie malnutrition; E11.9 Type 2 diabetes mellitus without complications; K59.00 Constipation, unspecified; E66.9 Obesity, unspecified; I10 Essential (primary) hypertension; Z79.01 Long term (current) use of anticoagulants; Z86.718 Personal history of other venous thrombosis and embolism
CPT/HCPCS: 36415; 71045; 80053; 81001; 83690; 85025; 85610; 85730; 86886; 86900; 86901; 87040; 87081; 87086; 93970; 96360; 96361; 99285; C9113; J1956; J2405; J3010; J3490; J7030; Q0092; Q9967

== ENCOUNTER 2019-01-15 13:25 | Emergency (ER) | payer OTHER ==
[~2019-01-15] VITALS: Ht 154.9 cm; Wt 108.9 kg
[2019-01-15 13:36] VITALS: BP 167/73
[2019-01-15 14:34] LABS: BASOPHILS # (AUTO) 0.1 K/uL (0.00-0.22); BASOPHILS % (AUTO) 0.7 % (0.0-2.0); EOSINOPHILS # (AUTO) 0.1 K/uL (0-0.4); EOSINOPHILS % (AUTO) 0.7 % (0.0-4.0); HEMATOCRIT 42.7 % (36-48); HEMOGLOBIN 14.5 g/dL (12.0-16.0); LYMPHOCYTES # (AUTO) 1.9 K/uL (2.5-16.5); LYMPHOCYTES % (AUTO) 19.3 % (20.5-51.1); MEAN CORPUSCULAR HEMOGLOBIN 30 pg (27-31); MEAN CORPUSCULAR HGB CONC 34 g/dL (33-37); MEAN CORPUSCULAR VOLUME 88.3 fL (80-94); MONOCYTES # (AUTO) 0.6 K/uL (0.8-1.0); MONOCYTES % (AUTO) 6.4 % (1.7-9.3); NEUTROPHILS % (AUTO) 72.9 % (42.2-75.2); PLATELET COUNT (AUTO) 253 K/uL (140-450); RED BLOOD CELL COUNT(AUTO) 4.83 MIL/uL (4.20-5.40); RED CELL DISTRIBUTION WIDTH 14.1 % (11.6-13.7); WHITE BLOOD COUNT (AUTO) 9.6 K/uL (4.8-10.8)
[2019-01-15 14:41] LABS: APPEARANCE,URINE CLEAR (CLEAR); BILIRUBIN,URINE NEGATIVE (NEGATIVE); BLOOD, URINE 1+ (NEGATIVE); COLOR,URINE YELLOW (YELLOW); LEUKOCYTE ESTERASE ,URINE NEGATIVE (NEGATIVE); NITRITE, URINE NEGATIVE (NEGATIVE); UGLUCOSE NEGATIVE (NEGATIVE)
[2019-01-15 14:47] LABS: ANION GAP 9.9 (8-16); CARBON DIOXIDE 27.4 mmol/L (21-32); CREATININE 0.8 mg/dL (0.6-1.3); POTASSIUM 3.3 mmol/L (3.5-5.1)
[2019-01-15 14:50] LABS: RBC,URINE 0-5 /HPF (0-5); WBC,URINE 0-5 /HPF (0-5)
[2019-01-15 14:53] LABS: ALBUMIN 3.4 g/dL (3.4-5.0); PROTHROMBIN TIME 9.6 secs (10.8-13.4); TOTAL BILIRUBIN 0.3 mg/dL (0.0-1.0)
--- NOTE | 2019-01-15 15:08 | NUR ---
PT TO ER BED 12
--- NOTE | 2019-01-15 15:10 | NUR ---
C/O DIZZINESS X YESTERDAY; WORSE WITH SUDDEN MOVEMENTS DENIES N/V/D---DENIES INJURY, DENIES RECTAL BLEEDING FULL CLEAR SPEECH, AMBULATORY WITH STEADY GAIT, EQUAL SANDER HAND HX--GERD, RECTAL BLEEDING RX---NONE
[2019-01-15] MEDS ORDERED: MECLIZINE 25 MG TAB PO ONE (15:55)
--- NOTE | 2019-01-15 17:30 | NUR ---
PT ROAD TESTED, TOLERATED WELL. ED MD NOTIFIED.
[2019-01-15 17:42] VITALS: BP 152/74
--- NOTE | 2019-01-15 17:44 | NUR ---
Patient discharged with v/s stable. Written and verbal after care instructions given and explained. Patient alert, oriented and verbalized understanding of instructions. Ambulatory with . All questions addressed prior to discharge. ID band removed. Patient advised to follow up with PMD. Rx of MECLIZINE given. Patient educated on indication of medication including possible reaction and side effects. Opportunity to ask questions provided and answered.
== END 2019-01-15 17:44 | disposition home or self-care (01) ==
LOC: MED 13:25
DX: H81.10 Benign paroxysmal vertigo, unspecified ear (principal); I10 Essential (primary) hypertension; R05 Cough; R06.02 Shortness of breath
CPT/HCPCS: 36415; 70450; 71045; 80053; 81001; 84484; 85025; 85610; 87086; 93005; 99284; J8597

== ENCOUNTER 2021-07-14 15:12 | Emergency (ER) | payer OTHER ==
[~2021-07-14] VITALS: Ht 162.6 cm; Wt 107.5 kg
[2021-07-14 16:25] VITALS: BP 108/71
[2021-07-14] MEDS ORDERED: APIX5TAB PO (17:41)
--- NOTE | 2021-07-14 17:45 | NUR ---
NO NURSING INTERVENTIONS IMPLEMENTED
[2021-07-14 17:48] VITALS: BP 108/71
--- NOTE | 2021-07-14 17:48 | NUR ---
Patient discharged with v/s stable. Written and verbal after care instructions given and explained. Patient alert, oriented and verbalized understanding of instructions. Ambulatory with steady gait. All questions addressed prior to discharge. ID band removed. Patient advised to follow up with PMD. Rx of ELIQUIS given. Patient educated on indication of medication including possible reaction and side effects. Opportunity to ask questions provided and answered.
== END 2021-07-14 17:48 | disposition home or self-care (01) ==
LOC: MED 15:12
DX: I82.412 Acute embolism and thrombosis of left femoral vein (principal); I11.9 Hypertensive heart disease without heart failure
CPT/HCPCS: 93971; 99284

== ENCOUNTER 2021-10-14 18:32 | Emergency (ER) | payer MEDICARE, OTHER ==
[~2021-10-14] VITALS: Ht 162.6 cm; Wt 106.1 kg
[~2021-10-14 18:32] MED LIST changes: +APIX5TAB PO; -RIVA20TA PO
[2021-10-14 18:43] VITALS: BP 168/96
--- NOTE | 2021-10-14 18:59 | NUR ---
65/F BIBA WITH C/O DIZZINESS AND INTERMITTENT NAUSEA SINCE THIS MORNING. PATIENT STATES SHE WOKE UP WITH DIZZINESS STATING IT HAS WORSENED THROUGHOUT THE DAY. REPORTS RECENTLY BEING SEEN AND DX FOR UTI AND GIVEN RX OF ANTIBIOTICS, STATING "I THINK THE MEDICINE IS MAKING ME DIZZY." PATIENT DENIES CP, SOB, HEADACHE OR BLURRED VISION. PATIENT IS ALERT AND ORIENTED X4, ANSWERING QUESTIONS APPROPRIATELY IN FULL CLEAR SENTENCES.
--- NOTE | 2021-10-14 19:31 | NUR ---
PT ASSISTED TO RR FOR URINE SAMPLE, DAUGHTER IS HELPING.
--- NOTE | 2021-10-14 19:42 | NUR ---
LAB AT BEDSIDE.
[2021-10-14] MEDS: NACL 0.9% 1,000 ML IV ONE (19:46)
[2021-10-14] MEDS: MECLIZINE 25 MG TAB PO ONE (19:48)
[2021-10-14 19:52] LABS: APPEARANCE,URINE CLEAR (CLEAR); BASOPHILS # (AUTO) 0.1 K/uL (0.00-0.22); BASOPHILS % (AUTO) 0.6 % (0.0-2.0); BILIRUBIN,URINE NEGATIVE (NEGATIVE); BLOOD, URINE 1+ (NEGATIVE); COLOR,URINE YELLOW (YELLOW); EOSINOPHILS # (AUTO) 0.1 K/uL (0-0.4); HEMOGLOBIN 14.3 g/dL (12.0-16.0); LEUKOCYTE ESTERASE ,URINE NEGATIVE (NEGATIVE); LYMPHOCYTES % (AUTO) 20.5 % (20.5-51.1); MEAN CORPUSCULAR HEMOGLOBIN 31 pg (27-31); MEAN CORPUSCULAR HGB CONC 35 g/dL (33-37); MEAN CORPUSCULAR VOLUME 89.3 fL (80-94); MONOCYTES # (AUTO) 0.6 K/uL (0.8-1.0); MONOCYTES % (AUTO) 6.1 % (1.7-9.3); NEUTROPHILS % (AUTO) 71.8 % (42.2-75.2); NITRITE, URINE NEGATIVE (NEGATIVE); PLATELET COUNT (AUTO) 270 K/uL (140-450); RED BLOOD CELL COUNT(AUTO) 4.59 MIL/uL (4.20-5.40); RED CELL DISTRIBUTION WIDTH 14.1 % (11.6-13.7); UGLUCOSE NEGATIVE (NEGATIVE); WHITE BLOOD COUNT (AUTO) 9.8 K/uL (4.8-10.8)
--- NOTE | 2021-10-14 19:55 | NUR ---
[facility] AT BEDSIDE.
[2021-10-14 20:03] LABS: RBC,URINE 0-5 /HPF (0-5); WBC,URINE NONE SEEN /HPF (0-5)
[2021-10-14 20:13] LABS: ALBUMIN 3.6 g/dL (3.4-5.0); ANION GAP 18.6 (8-16); CARBON DIOXIDE 24.7 mmol/L (21-32); MAGNESIUM 2.3 mg/dL (1.8-2.4); PHOSPHORUS 3.9 mg/dL (2.5-4.9); POTASSIUM 4.3 mmol/L (3.5-5.1); TOTAL BILIRUBIN 0.3 mg/dL (0.0-1.0)
--- NOTE | 2021-10-14 20:42 | NUR ---
[place] SISTER REQUESTING UPDATE [phone]
--- NOTE | 2021-10-14 21:10 | NUR ---
PT STATES SHE FEELS MUCH BETTER AFTER MEDICATION.
[2021-10-14] MEDS ORDERED: MECL-303 PO ×2 (21:26→21:36)
[2021-10-14 21:47] VITALS: BP 154/77
--- NOTE | 2021-10-14 21:47 | NUR ---
Patient discharged with v/s stable. Written and verbal after care instructions given and explained. Patient alert, oriented and verbalized understanding of instructions. Ambulatory with steady gait. All questions addressed prior to discharge. ID band removed. Patient advised to follow up with PMD. Rx of ANTIVERT given. Patient educated on indication of medication including possible reaction and side effects. Opportunity to ask questions provided and answered.
== END 2021-10-14 21:47 | disposition home or self-care (01) ==
LOC: MED 18:32
DX: R42 Dizziness and giddiness (principal); R11.0 Nausea; E11.9 Type 2 diabetes mellitus without complications; I10 Essential (primary) hypertension; Z79.899 Other long term (current) drug therapy; Z86.718 Personal history of other venous thrombosis and embolism
CPT/HCPCS: 36415; 70450; 71045; 80053; 81001; 83735; 84100; 84484; 85025; 96360; 99285; J7030; J8597; Q0092

== ENCOUNTER 2021-12-07 11:43 | Emergency (ER) | payer OTHER ==
[~2021-12-07] VITALS: Ht 154.9 cm; Wt 106.2 kg
[~2021-12-07 11:43] MED LIST changes: +MECL-303 PO
[2021-12-07 11:57] VITALS: BP 137/77
--- NOTE | 2021-12-07 12:03 | NUR ---
PT AMB TO ER BED 2
--- NOTE | 2021-12-07 12:23 | NUR ---
ANTHONY DRUMMOND BEDSIDE EVALUATING PT
--- NOTE | 2021-12-07 12:35 | NUR ---
Female Aviation Safety Equipment Technician accompanied female patient for Rectal Exam.
--- NOTE | 2021-12-07 13:04 | NUR ---
DR. KAUFMAN AT PT BEDSIDE FOR FURTHER EVALUATION.
[2021-12-07 13:47] LABS: APPEARANCE,URINE CLEAR (CLEAR); BILIRUBIN,URINE NEGATIVE (NEGATIVE); BLOOD, URINE 2+ (NEGATIVE); COLOR,URINE YELLOW (YELLOW); LEUKOCYTE ESTERASE ,URINE NEGATIVE (NEGATIVE); NITRITE, URINE NEGATIVE (NEGATIVE); UGLUCOSE NEGATIVE (NEGATIVE)
[2021-12-07 14:18] LABS: BASOPHILS % (AUTO) 0.4 % (0.0-2.0); EOSINOPHILS # (AUTO) 0.1 K/uL (0-0.4); EOSINOPHILS % (AUTO) 0.5 % (0.0-4.0); HEMATOCRIT 37.4 % (36-48); HEMOGLOBIN 12.8 g/dL (12.0-16.0); LYMPHOCYTES # (AUTO) 1.7 K/uL (2.5-16.5); MEAN CORPUSCULAR HEMOGLOBIN 31 pg (27-31); MEAN CORPUSCULAR HGB CONC 34 g/dL (33-37); MEAN CORPUSCULAR VOLUME 89.5 fL (80-94); MONOCYTES # (AUTO) 0.7 K/uL (0.8-1.0); NEUTROPHILS # (AUTO) 9.5 K/uL (1.8-7.7); NEUTROPHILS % (AUTO) 79.1 % (42.2-75.2); PLATELET COUNT (AUTO) 264 K/uL (140-450); RED BLOOD CELL COUNT(AUTO) 4.18 MIL/uL (4.20-5.40); RED CELL DISTRIBUTION WIDTH 14.1 % (11.6-13.7)
[2021-12-07 14:41] LABS: CALCIUM OXALATE CRYSTALS,UR None Seen /HPF (None Seen); COARSE GRANULAR CASTS,URINE None Seen /LPF (None Seen); FINE GRANULAR CASTS,URINE None Seen /LPF (None Seen); HYALINE CASTS, URINE None Seen /LPF (None Seen); OTHER CASTS, URINE None Seen /LPF (None Seen); OTHER CRYSTALS,URINE None Seen /HPF (None Seen); RED BLOOD CELL CASTS,URINE None Seen /LPF (None Seen); TRICHOMONAS,URINE None Seen /HPF (None Seen); TRIPLE PHOSPHATE CRYSTAL,UR None Seen /HPF (None Seen); URIC ACID CRYSTALS,URINE None Seen /HPF (None Seen); URINE AMORPHOUS URATE None Seen /HPF (None Seen); WAXY CASTS,URINE None Seen /LPF (None Seen); YEAST,URINE None Seen /HPF (None Seen)
[2021-12-07 15:01] LABS: ALBUMIN 3.3 g/dL (3.4-5.0); ANION GAP 14.3 (8-16); CARBON DIOXIDE 26.7 mmol/L (21-32); CREATININE 0.7 mg/dL (0.6-1.3); TOTAL BILIRUBIN 0.3 mg/dL (0.0-1.0)
[2021-12-07 15:30] VITALS: BP 130/72
--- NOTE | 2021-12-07 15:30 | NUR ---
Patient discharged with v/s stable. Written and verbal after care instructions given FOR RECTAL BLEEDING and explained. Patient verbalized understanding. Ambulatory with steady gait. All questions addressed prior to discharge. Advised to follow up with PMD.
[2021-12-07 15:43] LABS: PROTHROMBIN TIME 11.4 secs (10.8-13.4)
== END 2021-12-07 15:30 | disposition home or self-care (01) ==
LOC: MED 11:43
DX: K62.5 Hemorrhage of anus and rectum (principal); R19.5 Other fecal abnormalities; I11.9 Hypertensive heart disease without heart failure; E11.9 Type 2 diabetes mellitus without complications
CPT/HCPCS: 36415; 80053; 81001; 85025; 85610; 85730; 87086; 99283

== ENCOUNTER 2023-11-16 12:22 | Inpatient (IN) | payer OTHER ==
[~2023-11-16] VITALS: Ht 162.6 cm; Wt 108.9 kg
[2023-11-16 12:28] VITALS: BP 155/67; PULSE 96; RESP 18; TEMP 98.1; O2SAT 97
[2023-11-16] MEDS ORDERED: NACL 0.9% 1,000 ML IV SCH (13:05)
[2023-11-16 13:30] LABS: BASOPHILS % (AUTO) 0.3 % (0.0-2.0); EOSINOPHILS # (AUTO) 0.1 K/uL (0-0.4); EOSINOPHILS % (AUTO) 0.5 % (0.0-4.0); HEMATOCRIT 40.3 % (36-48); HEMOGLOBIN 13.8 g/dL (12.0-16.0); LYMPHOCYTES # (AUTO) 1.9 K/uL (2.5-16.5); LYMPHOCYTES % (AUTO) 11.9 % (20.5-51.1); MEAN CORPUSCULAR HEMOGLOBIN 31 pg (27-31); MEAN CORPUSCULAR HGB CONC 34 g/dL (33-37); MEAN CORPUSCULAR VOLUME 90.1 fL (80-94); MONOCYTES % (AUTO) 6.5 % (1.7-9.3); NEUTROPHILS # (AUTO) 12.7 K/uL (1.8-7.7); NEUTROPHILS % (AUTO) 80.8 % (42.2-75.2); PLATELET COUNT (AUTO) 263 K/uL (140-450); RED BLOOD CELL COUNT(AUTO) 4.47 MIL/uL (4.20-5.40); RED CELL DISTRIBUTION WIDTH 13.8 % (11.6-13.7); WHITE BLOOD COUNT (AUTO) 15.7 K/uL (4.8-10.8)
[2023-11-16 13:37] LABS: ANION GAP 11.1 (8-16); CARBON DIOXIDE 29.7 mmol/L (21-32); CREATININE 0.8 mg/dL (0.6-1.3); POTASSIUM 3.8 mmol/L (3.5-5.1)
[2023-11-16] MEDS ORDERED: HYDROcodone/APAP 5/325 MG 1 TAB TAB PO PRN (13:40)
[2023-11-16] MEDS ORDERED: ACETAMINOPHEN 325 MG TAB PO PRN (13:40)
[2023-11-16] MEDS ORDERED: ONDANSETRON 4 MG/2 ML VIAL IVP PRN (13:40)
[2023-11-16] MEDS: NACL 0.9% 1,000 ML IV SCH (13:49)
[2023-11-16] MEDS ORDERED: APIX2.5 PO (13:53)
[2023-11-16 14:22] VITALS: O2SAT 97
[2023-11-16 16:06] VITALS: O2SAT 98
[2023-11-16 18:05] VITALS: O2SAT 98
[2023-11-16] MEDS ORDERED: PIPERACILLIN/TAZOBACTAM 3.375 GM in DEXTROSE 5% 50 ML IV ONE (21:00)
[2023-11-16 21:05] VITALS: RESP 20; O2SAT 99
[2023-11-17] MEDS: NACL 0.9% 1,000 ML IV SCH ×3 (01:43→22:34)
[2023-11-17 06:49] LABS: BASOPHILS % (AUTO) 0.2 % (0.0-2.0); EOSINOPHILS # (AUTO) 0.1 K/uL (0-0.4); HEMATOCRIT 34.8 % (36-48); LYMPHOCYTES # (AUTO) 2.2 K/uL (2.5-16.5); LYMPHOCYTES % (AUTO) 20.5 % (20.5-51.1); MEAN CORPUSCULAR HEMOGLOBIN 32 pg (27-31); MEAN CORPUSCULAR HGB CONC 35 g/dL (33-37); MEAN CORPUSCULAR VOLUME 91.4 fL (80-94); MONOCYTES # (AUTO) 0.8 K/uL (0.8-1.0); MONOCYTES % (AUTO) 7.6 % (1.7-9.3); NEUTROPHILS # (AUTO) 7.8 K/uL (1.8-7.7); NEUTROPHILS % (AUTO) 70.7 % (42.2-75.2); PLATELET COUNT (AUTO) 222 K/uL (140-450); RED BLOOD CELL COUNT(AUTO) 3.81 MIL/uL (4.20-5.40); RED CELL DISTRIBUTION WIDTH 14.1 % (11.6-13.7)
[2023-11-17 07:13] LABS: ALBUMIN 2.7 g/dL (3.4-5.0); ANION GAP 12.4 (8-16); CALCIUM 8.4 mg/dL (8.5-10.1); CARBON DIOXIDE 26.3 mmol/L (21-32); CREATININE 0.7 mg/dL (0.6-1.3); MAGNESIUM 2.1 mg/dL (1.8-2.4); POTASSIUM 3.7 mmol/L (3.5-5.1); TOTAL BILIRUBIN 0.4 mg/dL (0.0-1.0); TOTAL PROTEIN, SERUM 7.2 g/dL (6.4-8.2)
[2023-11-17 08:00] VITALS: PULSE 85; RESP 20; O2SAT 99
[2023-11-17 12:00] VITALS: BP 100/60; PULSE 84; RESP 18; TEMP 98; O2SAT 96
[2023-11-17 16:00] VITALS: BP 108/67; PULSE 84; RESP 18; TEMP 98; O2SAT 96
[2023-11-17 20:00] VITALS: BP 116/68; PULSE 80; PULSE 85; RESP 18; RESP 20; TEMP 98.2; O2SAT 97; O2SAT 98
[2023-11-18 00:10] VITALS: BP 104/66; PULSE 74; RESP 14; TEMP 97.8; O2SAT 97
[2023-11-18 04:00] VITALS: BP 99/64; PULSE 72; RESP 14; TEMP 98; O2SAT 97
[2023-11-18 06:49] LABS: BASOPHILS % (AUTO) 0.3 % (0.0-2.0); EOSINOPHILS # (AUTO) 0.1 K/uL (0-0.4); EOSINOPHILS % (AUTO) 1.4 % (0.0-4.0); HEMATOCRIT 31.6 % (36-48); HEMOGLOBIN 10.9 g/dL (12.0-16.0); LYMPHOCYTES # (AUTO) 2.3 K/uL (2.5-16.5); LYMPHOCYTES % (AUTO) 26.3 % (20.5-51.1); MEAN CORPUSCULAR HEMOGLOBIN 31 pg (27-31); MEAN CORPUSCULAR HGB CONC 35 g/dL (33-37); MEAN CORPUSCULAR VOLUME 90.3 fL (80-94); MONOCYTES # (AUTO) 0.6 K/uL (0.8-1.0); MONOCYTES % (AUTO) 6.9 % (1.7-9.3); NEUTROPHILS # (AUTO) 5.8 K/uL (1.8-7.7); NEUTROPHILS % (AUTO) 65.1 % (42.2-75.2); PLATELET COUNT (AUTO) 226 K/uL (140-450); RED CELL DISTRIBUTION WIDTH 13.9 % (11.6-13.7); WHITE BLOOD COUNT (AUTO) 8.9 K/uL (4.8-10.8)
[2023-11-18] MEDS: NACL 0.9% 1,000 ML IV SCH (07:36)
[2023-11-18 07:37] LABS: CALCIUM 8.6 mg/dL (8.5-10.1); CARBON DIOXIDE 28.9 mmol/L (21-32); CREATININE 0.7 mg/dL (0.6-1.3); POTASSIUM 3.9 mmol/L (3.5-5.1)
[2023-11-18 08:00] VITALS: BP 116/51; PULSE 69; RESP 18; TEMP 97; O2SAT 99
[2023-11-18 12:00] VITALS: BP 132/66; PULSE 67; RESP 18; TEMP 98; O2SAT 97
[2023-11-18] MEDS ORDERED: AMOX-1230 PO (13:47)
[2023-11-18] MEDS ORDERED: ZOLP5TAB1 PO (14:22)
== END 2023-11-18 15:23 | disposition home or self-care (01) | DRG 378 ==
LOC: MED 12:22 → MMU 13:40 → MTU 20:42
PROVIDERS: ADMIT Internal Medicine; ATTEND Internal Medicine
DX: K57.33 Diverticulitis of large intestine without perforation or abscess with bleeding (principal); E44.1 Mild protein-calorie malnutrition; Z68.41 Body mass index [BMI] 40.0-44.9, adult; I48.91 Unspecified atrial fibrillation; E11.9 Type 2 diabetes mellitus without complications; I10 Essential (primary) hypertension; E66.9 Obesity, unspecified; M16.0 Bilateral primary osteoarthritis of hip; D25.9 Leiomyoma of uterus, unspecified; Z86.718 Personal history of other venous thrombosis and embolism; Z79.01 Long term (current) use of anticoagulants; Z80.0 Family history of malignant neoplasm of digestive organs
CPT/HCPCS: 36415; 71045; 80048; 80053; 82948; 83735; 85025; 86886; 86900; 86901; 87081; 93005; 99285; J2543; J7060

== ENCOUNTER 2024-01-08 16:42 | Inpatient (IN) | payer OTHER ==
[~2024-01-08] VITALS: Ht 162.6 cm; Wt 102.1 kg
[~2024-01-08 16:42] MED LIST changes: +AMOX-1230 PO; +APIX2.5 PO; -APIX5TAB PO; -MECL-303 PO; +ZOLP5TAB1 PO
[2024-01-08 17:02] VITALS: BP 136/71; PULSE 100; RESP 20; TEMP 98; O2SAT 98
[2024-01-08 19:26] LABS: BASOPHILS % (AUTO) 0.3 % (0.0-2.0); EOSINOPHILS # (AUTO) 0.1 K/uL (0-0.4); EOSINOPHILS % (AUTO) 0.4 % (0.0-4.0); HEMATOCRIT 37.8 % (36-48); HEMOGLOBIN 12.9 g/dL (12.0-16.0); LYMPHOCYTES # (AUTO) 2.4 K/uL (2.5-16.5); LYMPHOCYTES % (AUTO) 18.2 % (20.5-51.1); MEAN CORPUSCULAR HEMOGLOBIN 31 pg (27-31); MEAN CORPUSCULAR HGB CONC 34 g/dL (33-37); MEAN CORPUSCULAR VOLUME 90.6 fL (80-94); MONOCYTES # (AUTO) 0.7 K/uL (0.8-1.0); MONOCYTES % (AUTO) 5.4 % (1.7-9.3); NEUTROPHILS # (AUTO) 10.1 K/uL (1.8-7.7); NEUTROPHILS % (AUTO) 75.7 % (42.2-75.2); PLATELET COUNT (AUTO) 254 K/uL (140-450); RED BLOOD CELL COUNT(AUTO) 4.17 MIL/uL (4.20-5.40); RED CELL DISTRIBUTION WIDTH 13.7 % (11.6-13.7); WHITE BLOOD COUNT (AUTO) 13.4 K/uL (4.8-10.8)
[2024-01-08 19:38] LABS: APPEARANCE,URINE CLEAR (CLEAR); BILIRUBIN,URINE NEGATIVE (NEGATIVE); BLOOD, URINE 2+ (NEGATIVE); COLOR,URINE YELLOW (YELLOW); LEUKOCYTE ESTERASE ,URINE NEGATIVE (NEGATIVE); NITRITE, URINE NEGATIVE (NEGATIVE); PH,URINE 5.5 (5.0-9.0); PROTEIN,URINE NEGATIVE (NEGATIVE); UGLUCOSE NEGATIVE (NEGATIVE); UROBILINOGEN,URINE 0.2 EU/dL (0.2 - 1)
[2024-01-08 19:39] LABS: ANION GAP 12.9 (8-16); CALCIUM 9.2 mg/dL (8.5-10.1); CARBON DIOXIDE 24.8 mmol/L (21-32); CREATININE 0.8 mg/dL (0.6-1.3); POTASSIUM 3.7 mmol/L (3.5-5.1)
[2024-01-08 19:44] LABS: ALBUMIN 3.5 g/dL (3.4-5.0); BILIRUBIN,DIRECT 0.1 mg/dL (0.0-0.3); TOTAL BILIRUBIN 0.3 mg/dL (0.0-1.0)
[2024-01-08 19:55] LABS: INR 0.98 (0.8-1.2); PARTIAL THROMBOPLASTIN TIME 28.6 secs (22-35.6); PROTHROMBIN TIME 10.3 secs (10.8-13.4)
[2024-01-08] MEDS: CIPROFLOXACIN 400 MG/200ML-D5W 200 ML IV ONE (21:01)
[2024-01-08] MEDS ORDERED: ONDANSETRON 4 MG/2 ML VIAL IVP PRN (21:30)
[2024-01-08] MEDS ORDERED: ACETAMINOPHEN 325 MG TAB PO PRN (21:30)
[2024-01-08] MEDS ORDERED: MORPHINE SULFATE 2 MG/ML SYR IVP PRN (21:30)
[2024-01-08] MEDS ORDERED: HYDROcodone/APAP 5/325 MG 1 TAB TAB PO PRN (21:30)
[2024-01-08] MEDS ORDERED: ZOLPIDEM 5 MG TAB PO PRN (21:35)
[2024-01-08 22:40] LABS: LACTIC ACID 1.1 mmol/L (0.4-2.0)
[2024-01-08] MEDS ORDERED: metroNIDAZOLE 500 MG/NS PREMIX 100 ML IV ONE (22:58)
[2024-01-08] MEDS: metroNIDAZOLE 500 MG/NS PREMIX 100 ML IV ONE (23:00)
[2024-01-09] MEDS: DEXT 5% / NACL 0.45% 1,000 ML IV SCH (00:04)
[2024-01-09] MEDS ORDERED: cefTRIAXone 1,000 MG VIAL ONE (00:10)
[2024-01-09] MEDS: metroNIDAZOLE 500 MG/NS PREMIX 100 ML IV SCH (06:20)
[2024-01-09 06:36] LABS: BASOPHILS % (AUTO) 0.4 % (0.0-2.0); EOSINOPHILS # (AUTO) 0.1 K/uL (0-0.4); EOSINOPHILS % (AUTO) 1.3 % (0.0-4.0); HEMATOCRIT 34.4 % (36-48); HEMOGLOBIN 11.9 g/dL (12.0-16.0); LYMPHOCYTES # (AUTO) 1.7 K/uL (2.5-16.5); LYMPHOCYTES % (AUTO) 19.5 % (20.5-51.1); MEAN CORPUSCULAR HEMOGLOBIN 31 pg (27-31); MEAN CORPUSCULAR HGB CONC 35 g/dL (33-37); MEAN CORPUSCULAR VOLUME 90.5 fL (80-94); MONOCYTES # (AUTO) 0.8 K/uL (0.8-1.0); MONOCYTES % (AUTO) 9.2 % (1.7-9.3); NEUTROPHILS % (AUTO) 69.6 % (42.2-75.2); PLATELET COUNT (AUTO) 214 K/uL (140-450); RED CELL DISTRIBUTION WIDTH 13.8 % (11.6-13.7); WHITE BLOOD COUNT (AUTO) 8.6 K/uL (4.8-10.8)
[2024-01-09 07:16] LABS: ANION GAP 11.9 (8-16); CALCIUM 8.8 mg/dL (8.5-10.1); CARBON DIOXIDE 24.9 mmol/L (21-32); CREATININE 0.7 mg/dL (0.6-1.3); POTASSIUM 3.8 mmol/L (3.5-5.1); TOTAL BILIRUBIN 0.2 mg/dL (0.0-1.0); TOTAL PROTEIN, SERUM 7.4 g/dL (6.4-8.2)
[2024-01-09 08:30] VITALS: PULSE 81; RESP 20; O2SAT 97
[2024-01-09 16:00] VITALS: BP 141/61; PULSE 73; RESP 18; TEMP 98.5; O2SAT 100
[2024-01-09 20:00] VITALS: BP 133/50; PULSE 72; RESP 18; TEMP 98.3; O2SAT 96
[2024-01-10 04:00] VITALS: BP 150/60; PULSE 61; RESP 18; TEMP 97.6; O2SAT 98
[2024-01-10 08:00] VITALS: PULSE 81; RESP 18; O2SAT 98
[2024-01-10] MEDS ORDERED: METR-520 PO (13:14)
[2024-01-10] MEDS ORDERED: CIPR500T4 PO (13:14)
[2024-01-10 13:27] VITALS: BP 122/70; PULSE 75; RESP 18; TEMP 98.3
== END 2024-01-10 14:45 | disposition home or self-care (01) | DRG 378 ==
LOC: MED 16:42 → MMU 21:33 → MTU 21:33
PROVIDERS: ADMIT Hospitalist; ATTEND Hospitalist
DX: K57.33 Diverticulitis of large intestine without perforation or abscess with bleeding (principal); I48.20 Chronic atrial fibrillation, unspecified; K59.09 Other constipation; E66.9 Obesity, unspecified; I10 Essential (primary) hypertension; Z79.01 Long term (current) use of anticoagulants; Z68.38 Body mass index [BMI] 38.0-38.9, adult; Z79.899 Other long term (current) drug therapy
CPT/HCPCS: 36415; 80048; 80053; 80076; 81003; 83605; 83735; 85025; 85610; 85730; 86886; 86900; 86901; 87040; 87081; J0696; J0744; J3490; J7060